=== PATIENT | male | born 1945 | race Caucasian/White ===

== ENCOUNTER → 2019-06-10 | Outpatient (CLI) | payer MEDICARE ==
[~2019-06-10] MED LIST: ONDANSETRON HCL INJ 2MG/ML 2ML 2 MG/ML VIAL ONE
[2019-06-10 08:39] LABS: HEMOGLOBIN 14.3 g/dL (14.0-18.0)
[2019-06-10 08:45] LABS: INR 0.86; PARTIAL THROMBOPLASTIN TIME 26.1 seconds (23.8-35.5); PROTHROMBIN TIME 12.2 seconds (11.9-14.5)
--- NOTE | 2019-06-10 12:42 | Diagnostic Imaging Report ---
PROCEDURE: Lumbar puncture Procedural Personnel Attending physician(s): Chidi Del Angel MD Fellow physician(s): None Resident physician(s): None Advanced practice provider(s): None Pre-procedure diagnosis: Normal pressure hydrocephalus Post-procedure diagnosis: Same Indication: Headache in the setting of normal pressure hydrocephalus Additional clinical history: None Complications: No immediate complications. IMPRESSION: Fluoroscopically guided lumbar puncture. Opening pressure of 9 mmHg. 30 cc of clear CSF removed. Closing pressure of 7 mmHg. PROCEDURE SUMMARY: - Fluoroscopically guided lumbar puncture at L3-4. - Opening pressure measured at 9 mmHg - 30cc clear CSF removed - Closing pressure measured at 7 mmHg PROCEDURE DETAILS: Pre-procedure Consent: Informed consent for the procedure including risks, benefits and alternatives was obtained and time-out was performed prior to the procedure. Preparation: The site was prepared and draped using maximal sterile barrier technique including cutaneous antisepsis. Anesthesia/sedation Level of anesthesia/sedation: Local 1% lidocaine Lumbar Puncture Consulting Software [employer] images were obtained. Under image guidance and via a translaminar approach, a needle was advanced to the thecal space. Opening pressure was measured and CSF was obtained for further analysis. Target level: L3-4 Radiation Dose Fluoroscopy time (minutes): 0.9 Reference air kerma (mGy): 22.1 Additional Details Additional description of procedure: None Equipment details: None Specimens removed: 30cc clear CSF Estimated blood loss (mL): Less than 10 Attestation Signer name: Chidi Del Angel MD I attest that I was present for the entire procedure. I reviewed the stored images and agree with the report as written. Signed by: Chidi Del Angel MD on 06/10/2019 12:38 PM
== END ==
LOC: DX 07:26
PROVIDERS: ATTEND Neurological Surgery
DX: G91.2 (Idiopathic) normal pressure hydrocephalus (principal)
CPT/HCPCS: 36415; 62270; 77003; 85014; 85049; 85610; 85730; J2405